=== PATIENT | female | born 1985 | race Caucasian/White ===

== ENCOUNTER 2022-06-08 22:55 | Emergency (ER) | payer SELFPAY ==
[2022-06-08] MEDS ORDERED: Sodium Chloride 0.9% 10 ML Syringe FLUSH PRN (23:05)
[2022-06-08] MEDS ORDERED: Alum Hydrox/Mag Hydrox/Simeth 30 ML, Lidocaine 2% 15 ML PO ONE ×2 (23:23)
[2022-06-09 00:04] LABS: ESTIMATED GFR 66 mL/min (>60)
== END 2022-06-09 00:51 | disposition home or self-care (01) ==
LOC: JD.ED 22:55
DX: R07.2 Precordial pain (principal); F17.210 Nicotine dependence, cigarettes, uncomplicated; Z88.0 Allergy status to penicillin; Z88.6 Allergy status to analgesic agent
CPT/HCPCS: 36415; 71045; 80053; 83735; 84484; 84702; 85025; 93005; 99285; A9270; 93010; 99283

== ENCOUNTER 2024-04-20 21:39 | Emergency (ER) | payer BC ==
[2024-04-20] MEDS: guaiFENesin 600 MG Tab.ER PO ONE (22:54)
== END 2024-04-20 23:24 | disposition home or self-care (01) ==
LOC: JD.ED 21:39
DX: H69.92 Unspecified Eustachian tube disorder, left ear (principal); F17.210 Nicotine dependence, cigarettes, uncomplicated; Z90.710 Acquired absence of both cervix and uterus; Z88.1 Allergy status to other antibiotic agents; Z88.8 Allergy status to other drugs, medicaments and biological substances; Z79.899 Other long term (current) drug therapy
CPT/HCPCS: 99282; A9270